=== PATIENT | female | born 1990 | race African-American/Black ===

== ENCOUNTER → 2017-01-10 | Outpatient (CLI) | payer OTHER ==
--- NOTE | 2017-01-10 16:04 | US ---
EXAMINATION TYPE: US OB >= 14 wk fetus DATE OF EXAM: 01/10/2017 COMPARISON: None CLINICAL HISTORY: 26-year-old female O99.211 Obesity affecting . Confirm Dates TECHNIQUE: Transabdominal (TA) FINDINGS: GESTATIONAL AGE / DATING Physician Established: (14 weeks/2 days) EDC: 07/09/2017 Dates by LMP: Unknown Dates by First Scan: No prior Dates by Current Scan: (15 weeks/3 days +/- 1 week 1 day) EDC: 07/01/2017 SURVEY IUP: Single PLACENTA: Posterior PREVIA: No Previa, however, the placenta is low lying with the caudal placental margin located 2.1 c m from the internal cervical os. FRANCIS: 11.4 cm Normal CERVICAL LENGTH (transabdominal: norm > 3.0cm): 3.7 cm BIOMETRY PRESENTATION: Breech BPD: 3.0 cm 15 weeks / 4 days HC: 11.3 cm 15 weeks / 4 days AC: 9.2 cm 15 weeks / 3 days FL: 1.7 cm 15 weeks / 0 days ESTIMATED WEIGHT IN GRAMS: 117.8 grams ESTIMATED WEIGHT IN LBS/OZS: 0 lbs. 4 oz. WEIGHT PERCENTAGE BASED ON ESTABLISHED DATES: 92.8% HC/AC: 1.23 Normal FL/AC: 18 Normal HEART RATE: 166 bpm RHYTHM: Normal Single, viable IUP/ No abnormality seen at this time IMPRESSION: 1. Single live intrauterine with established gestational age of 14 weeks 2 days. Current ul trasound biometry is larger and just barely concordant (15 weeks 3 days). This places the gestation a t the 93rd percentile for weight. Continued follow-up as clinically indicated. 2. Low-lying posterior placenta with the inferior placental tip measuring 2.1 cm from the internal ce rvical os. 3. Complete survey recommended at 18-20 weeks.
== END ==
LOC: RADUSWWP 14:41
PROVIDERS: ATTEND Obstetrics & Gynecology
DX: O44.42 Low lying placenta NOS or without hemorrhage, second trimester (principal); Z3A.15 15 weeks gestation of pregnancy
CPT/HCPCS: 76805

== ENCOUNTER → 2017-02-09 | Outpatient (CLI) | payer OTHER ==
--- NOTE | 2017-02-09 17:17 | US ---
EXAMINATION TYPE: US OB anatomy transabd DATE OF EXAM: 02/09/2017 COMPARISON: NONE HISTORY: O99.212 Obesity Effecting 2nd Trimester TECHNIQUE: Transabdominal (TA) EXAM MEASUREMENTS: GESTATIONAL AGE / DATING Physician Established: (19 weeks/5 days) EDC: 07/01/17 Dates by LMP: unknown Dates by First Scan: (19 weeks/5 days) EDC: 07/01/17 Dates by Current Scan for: (20 weeks/2 days) EDC: 06/27/17 SURVEY IUP: Single PLACENTA: Posterior PREVIA: No previa FRANCIS: 16.9 cm Normal CERVICAL LENGTH (transabdominal: norm > 3.0cm): 3.4 cm BIOMETRY PRESENTATION: Variable LIE: Transverse lie with head maternal LT BPD: 4.6 cm 20 weeks / 0 days HC: 17.6 cm 20 weeks / 1 days AC: 14.8 cm 20 weeks / 1 days FL: 3.4 cm 20 weeks / 5 days ESTIMATED WEIGHT IN GRAMS: 346 grams ESTIMATED WEIGHT IN LBS/OZ: 0 lbs. 12 oz. WEIGHT PERCENTAGE BASED ON ESTABLISHED DATE: 79 % HC/AC: 1.19 Normal FL/AC: 23% Normal HEART RATE: 144 bpm RHYTHM: Normal ANATOMY SEEN (within normal limits): * Lateral Vent (< 1 cm) 0.8 cm * Cisterna Magna (< 1.1 cm) 0.4 cm * Nuchal Fold (< 0.6 cm) 0.3 cm * Cerebellum (varies with age) 1.8 cm Choroid Plexus (bilateral) Midline Falx Cavus Septi Pellucidi Four Chamber Heart Outflow tracts: LVOT/RVOT Stomach Situs Nose / Lips Diaphragm Kidneys (bilateral) Bladder Cord Insert Three Vessel Cord Longitudinal Spine Transverse Spine Arms (bilateral) Legs (bilateral) MATERNAL WALL MEASUREMENT: 4.2 cm from skin to anterior uterine wall (if exam limited due to body linda bitus). Single viable IUP 20wks/2days with NAKIA of 06/27/17 IMPRESSION: There is satisfactory growth compared to old exam of 01/10/2017. I see no complicati ng process.
== END | disposition home or self-care (01) ==
LOC: RADUSWWP 15:48
PROVIDERS: ATTEND Obstetrics & Gynecology
DX: O99.212 Obesity complicating pregnancy, second trimester (principal); Z3A.00 Weeks of gestation of pregnancy not specified
CPT/HCPCS: 76811

== ENCOUNTER → 2017-04-20 | Outpatient (CLI) | payer OTHER ==
--- NOTE | 2017-04-20 15:30 | US ---
EXAMINATION TYPE: US OB >= 14 wk fetus DATE OF EXAM: 04/20/2017 COMPARISON: 01/10/2017 HISTORY: 26-year-old female O99.212 Obesity complicating , second trimester. TECHNIQUE: Transabdominal (TA) FINDINGS: EXAM MEASUREMENTS: GESTATIONAL AGE / DATING Physician Established: (29 weeks/5 days) EDC: 07/01/2017 Dates by LMP: (28 weeks/ 4 days) EDC: 07/09/2017 Dates by First Scan: (29 weeks/5 days) EDC: 07/01/2017 Dates by Current Scan for: (30 weeks/2 days) EDC: 06/27/2017 SURVEY IUP: Single PLACENTA: Posterior PREVIA: No previa FRANCIS: 12.6 cm Normal CERVICAL LENGTH (transabdominal: norm > 3.0cm): 3.0 cm BIOMETRY PRESENTATION: Vertex LIE: Longitudinal BPD: 7.5 cm 30 weeks / 2 days HC: 28.5 cm 31 weeks / 3 days AC: 26.3 cm 30 weeks / 3 days FL: 5.78 cm 30 weeks / 2 days ESTIMATED WEIGHT IN GRAMS: 1575 grams ESTIMATED WEIGHT IN LBS/OZ: 3 lbs. 8 oz. WEIGHT PERCENTAGE BASED ON ESTABLISHED DATE: 94.9 % (versus 92.8% on 01/10/2017). HC/AC: 1.09 Normal FL/AC: 21.98 Normal HEART RATE: 155 bpm RHYTHM: Normal DEEP TISSUE MASSAGE THERAPIST NOTES: Viable IUP, measurements congruent with physician established dates. IMPRESSION: 1. Single live intrauterine with established gestational age of 29 weeks 5 days by prior da ting scan. Current ultrasound biometry is concordant (30 weeks 2 days) placing the child at the 95th percentile for weight. This is in comparison to the 93rd percentile on 01/10/2017. 2. Note cervical length at the lower limits of normal at 3.0 cm. 3. Continued follow-up as clinically indicated.
== END | disposition home or self-care (01) ==
LOC: RADUSWWP 14:38
PROVIDERS: ATTEND Obstetrics & Gynecology
DX: O99.212 Obesity complicating pregnancy, second trimester (principal); Z3A.30 30 weeks gestation of pregnancy
CPT/HCPCS: 76805

== ENCOUNTER → 2017-06-06 | Outpatient (CLI) | payer OTHER ==
--- NOTE | 2017-06-06 15:31 | US ---
EXAMINATION TYPE: US OB >= 14 wk fetus DATE OF EXAM: 06/06/2017 COMPARISON: 2016 CLINICAL HISTORY: Growth O99.213, [id number], 2, para 1 TECHNIQUE: Transabdominal (TA) GESTATIONAL AGE / DATING Physician Established: (36 weeks/3 days) EDC: 07/01/2017 Dates by LMP: (35 weeks/2 days) EDC: 07/09/2017 Dates by First Scan: (36 weeks/3 days) EDC: 07/01/2017 Dates by Current Scan: (36 weeks/6 days) EDC: 06/28/2017 SURVEY IUP: Single PLACENTA: Posterior PREVIA: No Previa FRANCIS: 15.1 cm Normal CERVICAL LENGTH (transabdominal: norm > 3.0cm): 3.4 cm BIOMETRY PRESENTATION: Vertex BPD: 9.3 cm 37 weeks / 4 days HC: 32.9 cm 37 weeks / 3 days AC: 33.3 cm 37 weeks / 1 days FL: 7.2 cm 36 weeks / 6 days ESTIMATED WEIGHT IN GRAMS: 3138 grams ESTIMATED WEIGHT IN LBS/OZ: 6 lbs. 15 oz. WEIGHT PERCENTAGE BASED ON ESTABLISHED DATES: 74% HC/AC: 0.99 Normal FL/AC: 21.58 Normal HEART RATE: 140 bpm RHYTHM: Normal MATERNAL WALL MEASUREMENT: 4.4 cm from skin to anterior uterine wall (if exam limited due to body hab itus). IMPRESSION: Viable single IUP measuring 36 weeks 6 days with a heart rate of 140bpm and an estimated delivery seferino e of 06/28/2017.
== END | disposition home or self-care (01) ==
LOC: RADUSWWP 14:37
PROVIDERS: ATTEND Obstetrics & Gynecology
DX: O99.213 Obesity complicating pregnancy, third trimester (principal); O36.63X0 Maternal care for excessive fetal growth, third trimester, not applicable or unspecified; Z3A.36 36 weeks gestation of pregnancy
CPT/HCPCS: 76805

== ENCOUNTER → 2018-10-30 | Outpatient (CLI) | payer OTHER ==
[2018-10-30 10:24] LABS: Basophils % (A) 0 %; Eosinophils # (A) 0.2 k/uL (0-0.7); Eosinophils % (A) 3 %; HCT 42.2 % (34.0-46.0); Lymphocytes # (A) 2.1 k/uL (1.0-4.8); Lymphocytes % (A) 27 %; MCH 27.7 pg (25.0-35.0); MCHC 30.7 g/dL (31.0-37.0); MCV 90.2 fL (80.0-100.0); Mean Platelet Volume 6.4; Monocytes # (A) 0.3 k/uL (0-1.0); Monocytes % (A) 4 %; Neutrophils % (A) 65 %; Platelet Count 256 k/uL (150-450); RBC 4.68 m/uL (3.80-5.40); RDW 13.1 % (11.5-15.5); WBC 7.7 k/uL (3.8-10.6)
[2018-10-30 16:24] LABS: Albumin 3.9 g/dL (3.80-4.90); Albumin/Globulin Ratio 2.17 (1.60-3.17); Anion Gap 4.6 mmol/L (4.00-12.00); Calcium 8.9 mg/dL (8.7-10.3); Carbon Dioxide 27.4 mmol/L (21.6-31.8); Globulin 1.8 g/dL (1.6-3.3); Potassium 4.5 mmol/L (3.5-5.5); Total Bilirubin 0.2 mg/dL (0.2-1.2); Total Protein 5.7 g/dL (6.2-8.2)
== END | disposition home or self-care (01) ==
LOC: LABWHC1 09:40
PROVIDERS: ATTEND Physician Assistant
DX: F33.0 Major depressive disorder, recurrent, mild (principal)
CPT/HCPCS: 36415; 80053; 82607; 82746; 84439; 84443; 85025

== ENCOUNTER 2021-03-17 10:40 | Emergency (ER) | payer OTHER ==
[2021-03-17] MEDS ORDERED: SODIUM CHLORIDE 0.9% 1,000 ML IV STA (11:22)
[2021-03-17] MEDS ORDERED: ACETAMINOPHEN TAB 500 MG TAB PO STA (11:23)
[2021-03-17] MEDS ORDERED: ONDANSETRON 4 MG/2 ML VIAL IVP STA (11:23)
--- NOTE | 2021-03-17 11:24 | ED ---
General Adult HPI - General Chief complaint: Nausea/Vomiting/Diarrhea Stated complaint: vomiting Time Seen by Provider: 03/17/21 11:13 Source: patient Mode of arrival: ambulatory Limitations: no limitations - History of Present Illness Initial comments: 30-year-old female with a past medical history of migraines presents to the emergency room for a chief complaint of nausea vomiting. Patient states she has had nausea and vomiting for about a week now. That she has been trying to keep down fluids such as water and Gatorade is unable. States that she has tried breath but cannot keep that down. She denies any abdominal pain. Denies fevers or chills. Denies diarrhea.Patient has no other complaints at this time including shortness of breath, chest pain, abdominal pain, headache, or visual changes. - Related Data Home Medications Medication Instructions Recorded Confirmed Pnv,Calcium 72/Iron/Folic Acid 03/28/15 03/29/15 [Pnv Plus Multivit Tab] Previous Rx's Medication Instructions Recorded Acetaminophen-Codeine 300-30mg 1 each PO Q4HR PRN #30 tab 03/30/15 [Tylenol w/codeine #3] Ibuprofen [Motrin] 600 mg PO Q6HR PRN #60 tab 03/30/15 Ondansetron [Zofran ODT] 4 mg PO Q8HR PRN #15 tab 03/17/21 Allergies Allergy/AdvReac Type Severity Reaction Status Date / Time venom-honey bee Allergy Swelling Verified 03/17/21 11:11 [bee venom (honey bee)] Review of Systems ROS Statement: Those systems with pertinent positive or pertinent negative responses have been documented in the HPI. ROS Other: All systems not noted in ROS Statement are negative. Past Medical History Additional Past Medical History / Comment(s): MIGRAINES History of Any Multi-Drug Resistant Organisms: None Reported Past Surgical History: No Surgical Hx Reported Past Anesthesia/Blood Transfusion Reactions: No Reported Reaction Past Psychological History: Depression Smoking Status: Never smoker Past Alcohol Use History: None Reported Past Drug Use History: None Reported - Past Family History Mother Family Medical History: Hypertension General Exam Limitations: no limitations General appearance: alert, in no apparent distress Head exam: Present: atraumatic Eye exam: Present: normal appearance, PERRL, EOMI. Absent: scleral icterus, conjunctival injection ENT exam: Present: normal exam, mucous membranes moist Neck exam: Present: normal inspection, full ROM. Absent: tenderness Respiratory exam: Present: normal lung sounds bilaterally. Absent: respiratory distress, wheezes Cardiovascular Exam: Present: regular rate, normal rhythm, normal heart sounds GI/Abdominal exam: Present: soft, normal bowel sounds. Absent: distended, tenderness Course Vital Signs 03/17/21 03/17/21 03/17/21 11:06 12:11 13:57 Temperature 100.1 F H 100 F H 100.2 F H Pulse Rate 101 H 73 88 Respiratory 19 18 18 Rate Blood Pressure 144/99 134/91 132/92 O2 Sat by Pulse 97 100 99 Oximetry Medical Decision Making - Medical Decision Making Vitals are stable. Patient does have a low-grade fever. Patient is well- appearing. CBC CMP unremarkable. Urinalysis does show 3+ ketones, patient was given a liter of fluids. Coronavirus and hCG negative. CT abdomen and pelvis showed some focal fatty infiltration but otherwise is unremarkable. Patient was given antiemetics and did feel better was able to tolerate oral intake. She did not have any emesis here in the emergency room. At this time I am suspicious for a viral gastrointestinal syndrome. Patient is stable to be discharged home to follow up with primary care. She should return here for any worsening symptoms. I did discuss strict return parameters which as if she is unable to keep down fluids with the nausea medicine. - Lab Data Result diagrams: 03/17/21 11:50 03/17/21 11:50 Lab Results 03/17/21 03/17/21 03/17/21 Range/Units 11:50 11:50 11:50 WBC 12.5 H (3.8-10.6) k/uL RBC 5.10 (3.80-5.40) m/uL Hgb 15.2 (11.4-16.0) gm/dL Hct 45.3 (34.0-46.0) % MCV 88.8 (80.0-100.0) fL MCH 29.8 (25.0-35.0) pg MCHC 33.5 (31.0-37.0) g/dL RDW 11.9 (11.5-15.5) % Plt Count 363 (150-450) k/uL MPV 7.3 Neutrophils % 65 % Lymphocytes % 28 % Monocytes % 5 % Eosinophils % 0 % Basophils % 0 % Neutrophils # 8.1 H (1.3-7.7) k/uL Lymphocytes # 3.5 (1.0-4.8) k/uL Monocytes # 0.6 (0-1.0) k/uL Eosinophils # 0.0 (0-0.7) k/uL Basophils # 0.1 (0-0.2) k/uL Sodium (137-145) mmol/L Potassium (3.5-5.1) mmol/L Chloride (98-107) mmol/L Carbon Dioxide (22-30) mmol/L Anion Gap mmol/L BUN (7-17) mg/dL Creatinine (0.52-1.04) mg/dL Est GFR (CKD-EPI)AfAm (>60 ml/min/1.73 sqM) Est GFR (CKD-EPI)NonAf (>60 ml/min/1.73 sqM) Glucose (74-99) mg/dL Calcium (8.4-10.2) mg/dL Total Bilirubin (0.2-1.3) mg/dL AST (14-36) U/L ALT (4-34) U/L Alkaline Phosphatase (38-126) U/L Total Protein (6.3-8.2) g/dL Albumin (3.5-5.0) g/dL Urine Color Yellow Urine Appearance Cloudy H (Clear) Urine pH 6.5 (5.0-8.0) Ur Specific Rumely 1.033 (1.001-1.035) Urine Protein 1+ H (Negative) Urine Glucose (UA) Negative (Negative) Urine Ketones 3+ H (Negative) Urine Blood Negative (Negative) Urine Nitrite Negative (Negative) Urine Bilirubin 1+ H (Negative) Urine Urobilinogen 4.0 (<2.0) mg/dL Ur Leukocyte Esterase Moderate H (Negative) Urine RBC 2 (0-5) /hpf Urine WBC 10 H (0-5) /hpf Ur Squamous Epith Cells 15 H (0-4) /hpf Amorphous Sediment Rare H (None) /hpf Urine Bacteria Rare H (None) /hpf Urine Mucus Many H (None) /hpf Urine HCG, Qual Not Detected (Not Detectd) Coronavirus (PCR) (Not Detectd) 03/17/21 03/17/21 Range/Units 11:50 11:50 WBC (3.8-10.6) k/uL RBC (3.80-5.40) m/uL Hgb (11.4-16.0) gm/dL Hct (34.0-46.0) % MCV (80.0-100.0) fL MCH (25.0-35.0) pg MCHC (31.0-37.0) g/dL RDW (11.5-15.5) % Plt Count (150-450) k/uL MPV Neutrophils % % Lymphocytes % % Monocytes % % Eosinophils % % Basophils % % Neutrophils # (1.3-7.7) k/uL Lymphocytes # (1.0-4.8) k/uL Monocytes # (0-1.0) k/uL Eosinophils # (0-0.7) k/uL Basophils # (0-0.2) k/uL Sodium 136 L (137-145) mmol/L Potassium 3.5 (3.5-5.1) mmol/L Chloride 94 L (98-107) mmol/L Carbon Dioxide 27 (22-30) mmol/L Anion Gap 15 mmol/L BUN 16 (7-17) mg/dL Creatinine 0.86 (0.52-1.04) mg/dL Est GFR (CKD-EPI)AfAm >90 (>60 ml/min/1.73 sqM) Est GFR (CKD-EPI)NonAf >90 (>60 ml/min/1.73 sqM) Glucose 104 H (74-99) mg/dL Calcium 10.3 H (8.4-10.2) mg/dL Total Bilirubin 0.9 (0.2-1.3) mg/dL AST 49 H (14-36) U/L ALT 34 (4-34) U/L Alkaline Phosphatase 104 (38-126) U/L Total Protein 8.6 H (6.3-8.2) g/dL Albumin 4.8 (3.5-5.0) g/dL Urine Color Urine Appearance (Clear) Urine pH (5.0-8.0) Ur Specific Rumely (1.001-1.035) Urine Protein (Negative) Urine Glucose (UA) (Negative) Urine Ketones (Negative) Urine Blood (Negative) Urine Nitrite (Negative) Urine Bilirubin (Negative) Urine Urobilinogen (<2.0) mg/dL Ur Leukocyte Esterase (Negative) Urine RBC (0-5) /hpf Urine WBC (0-5) /hpf Ur Squamous Epith Cells (0-4) /hpf Amorphous Sediment (None) /hpf Urine Bacteria (None) /hpf Urine Mucus (None) /hpf Urine HCG, Qual (Not Detectd) Coronavirus (PCR) Not Detected (Not Detectd) Disposition Clinical Impression: Nausea & vomiting Disposition: HOME SELF-CARE Condition: Good Instructions (If sedation given, give patient instructions): Acute Nausea and Vomiting (ED) Additional Instructions: Please follow up with primary care in 1-2 days. Return to the emergency room for any worsening symptoms such as if you are unable to tolerate oral intake with the nausea medicine. Prescriptions: Ondansetron [Zofran ODT] 4 mg PO Q8HR PRN #15 tab PRN Reason: Nausea Is patient prescribed a controlled substance at d/c from ED?: No Referrals: [facility] [Primary Care Provider] - 1-2 days Time of Disposition: 15:18
[2021-03-17 12:15] LABS: Basophils # (A) 0.1 k/uL (0-0.2); Basophils % (A) 0 %; Eosinophils % (A) 0 %; HCT 45.3 % (34.0-46.0); HGB 15.2 gm/dL (11.4-16.0); Lymphocytes # (A) 3.5 k/uL (1.0-4.8); Lymphocytes % (A) 28 %; MCH 29.8 pg (25.0-35.0); MCHC 33.5 g/dL (31.0-37.0); MCV 88.8 fL (80.0-100.0); Mean Platelet Volume 7.3; Monocytes # (A) 0.6 k/uL (0-1.0); Monocytes % (A) 5 %; Neutrophils # (A) 8.1 k/uL (1.3-7.7); Neutrophils % (A) 65 %; Platelet Count 363 k/uL (150-450); RDW 11.9 % (11.5-15.5); WBC 12.5 k/uL (3.8-10.6)
[2021-03-17 12:37] LABS: ALT 34 U/L (4-34); AST 49 U/L (14-36); African American GFR (CKD) >90 (>60 ml/min/1.73 sqM); Albumin 4.8 g/dL (3.5-5.0); Alkaline Phosphatase 104 U/L (38-126); Anion Gap 15 mmol/L; Blood Urea Nitrogen 16 mg/dL (7-17); Calcium 10.3 mg/dL (8.4-10.2); Carbon Dioxide 27 mmol/L (22-30); Chloride 94 mmol/L (98-107); Glucose 104 mg/dL (74-99); Non-African American GFR(CKD) >90 (>60 ml/min/1.73 sqM); Potassium 3.5 mmol/L (3.5-5.1); Sodium 136 mmol/L (137-145); Total Bilirubin 0.9 mg/dL (0.2-1.3); Total Protein 8.6 g/dL (6.3-8.2)
[2021-03-17 13:08] VITALS: RESP 18
[2021-03-17 13:26] LABS: Amorphous Sediment,Urine Rare /hpf; Appearance,Urine Cloudy (Clear); Bacteria,Urine Rare /hpf; Bilirubin,Urine 1+ (Negative); Blood,Urine Negative (Negative); Color,Urine Yellow; Glucose,Urine (UA) Negative (Negative); Ketones,Urine 3+ (Negative); Leukocyte Esterase,Urine Moderate (Negative); Mucus,Urine Many /hpf; Nitrite,Urine Negative (Negative); PH, Urine 6.5 (5.0-8.0); Protein,Urine 1+ (Negative); RBC,Urine 2 /hpf (0-5); Specific Gravity,Urine 1.033 (1.001-1.035); Squamous Epithelial Cell,Urine 15 /hpf (0-4); WBC,Urine 10 /hpf (0-5)
[2021-03-17] MEDS ORDERED: METOCLOPRAMIDE 5 MG/ML 2 ML VIAL IVP STA (13:29)
[2021-03-17] MEDS ORDERED: diphenhydrAMINE 50 MG/ML 1 ML VIAL IVP STA (13:29)
--- NOTE | 2021-03-17 14:52 | CT ---
EXAMINATION TYPE: CT abdomen pelvis w con DATE OF EXAM: 03/17/2021 COMPARISON: None HISTORY: Generalized pain with vomiting. CT DLP: 1610 mGycm CONTRAST: CT scan of the abdomen and pelvis is performed without Oral Contrast and with IV Contrast, patient in jected with 100 mL of Isovue 300. FINDINGS: LUNG BASES-: No visible nodule. No infiltrate. LIVER/GB: No calcified gallstones. Hypoechoic area adjacent to the falciform ligament of the liver to reflect focal fat. Underlying lesion is difficult to exclude. Gallbladder fold is noted. Biliary t ree is of normal caliber. PANCREAS: No inflammation. No distinct mass. SPLEEN: No splenic enlargement. No lesion seen. ADRENALS: No nodule. No thickening. KIDNEYS/BLADDER: No hydronephrosis. No nephrolithiasis. No distinct renal mass. Urinary bladder g rossly unremarkable. BOWEL: Normal appendix. Normal bowel caliber. No inflammation. GENITAL ORGANS: No gross abnormality. IUD is noted to be in place. LYMPH NODES: No greater than 1cm abdominal or pelvic lymph nodes are appreciated. AORTA: No significant abnormality. OSSEOUS STRUCTURES: No significant abnormality is seen. OTHER: No significant additional abnormality is seen. IMPRESSION: 1. Hypoechoic area adjacent to the falciform ligament of the liver to reflect focal fat. Underlying l esion is difficult to exclude. 2. No acute inflammatory process seen.
[2021-03-17 15:57] VITALS: BP 141/94; PULSE 79; TEMP 100.4
[2021-03-17] MEDS ORDERED: IBUPROFEN 600 MG TAB PO STA (16:00)
== END 2021-03-17 16:06 | disposition home or self-care (01) ==
LOC: EC 10:40
DX: R11.2 Nausea with vomiting, unspecified (principal); R19.7 Diarrhea, unspecified; R50.9 Fever, unspecified; Z20.822 Contact with and (suspected) exposure to COVID-19; Z91.018 Allergy to other foods
CPT/HCPCS: 36415; 74177; 80053; 81001; 81025; 85025; 87635; 96361; 96374; 96375; 99284

== ENCOUNTER 2024-01-06 10:11 | Emergency (ER) | payer OTHER ==
[2024-01-06] MEDS ORDERED: SODIUM CHLORIDE 0.9% 1,000 ML BAG ONE (11:32)
[2024-01-06] MEDS ORDERED: METOCLOPRAMIDE 5 MG/ML 2 ML VIAL ONE (11:53)
== END 2024-01-06 17:00 | disposition home or self-care (01) ==
LOC: EC 10:11
DX: N39.0 Urinary tract infection, site not specified (principal)
CPT/HCPCS: 96374; 99284